=== PATIENT | female | born 1950 | race Asian ===

== ENCOUNTER 2018-09-19 08:24 | Outpatient (CLI) | payer MEDICARE, OTHER ==
--- NOTE | 2018-09-19 10:12 | MMO ---
Bilateral MAMMO Bilat Screen [facility]. CLINICAL HISTORY: Patient is 67 years old and is seen for screening. The patient has no family history of breast cancer. The patient has no personal history of cancer. VIEWS: The views performed were: bilateral craniocaudal and bilateral mediolateral oblique. FILMS COMPARED: The present examination has been compared to prior imaging studies performed at [facility] on 05/29/2010, 08/26/2011, 09/15/2012 and 03/26/2014, and at [facility] on 08/13/2016. This study has been interpreted with the assistance of computer-aided detection. MAMMOGRAM FINDINGS: The breasts are heterogeneously dense, which could obscure a lesion on mammography. There are no suspicious masses, suspicious calcifications, or new areas of architectural distortion. IMPRESSION: THERE IS NO MAMMOGRAPHIC EVIDENCE OF MALIGNANCY. A ROUTINE FOLLOW-UP MAMMOGRAM IN 1 YEAR IS RECOMMENDED. ACR BI-RADS Category 1 - Negative MAMMOGRAPHY NOTE: 1. A negative mammogram report should not delay a biopsy if a dominant of clinically suspicious mass is present. 2. Approximately 10% to 15% of breast cancers are not detected by mammography. 3. Adenosis and dense breasts may obscure an underlying neoplasm.
== END 2018-09-19 08:25 | disposition home or self-care (01) ==
LOC: SCSMAMMO 08:24
PROVIDERS: ATTEND Family Medicine
DX: Z12.31 Encounter for screening mammogram for malignant neoplasm of breast (principal)
CPT/HCPCS: 77067

== ENCOUNTER 2019-10-11 08:00 | Outpatient (CLI) | payer MEDICARE, OTHER ==
--- NOTE | 2019-10-11 10:53 | MRI ---
MRI RIGHT SHOULDER WITHOUT CONTRAST: Date: 10/11/2019 INDICATION: 68-year-old female with history of right shoulder pain. FINDINGS: There is a partial thickness articular surface tear involving the near entirety of the supraspinatus at the footprint measuring 1.5 x 2.1 cm in its greatest mediolateral and AP dimensions, respectively. The tear involves approximately 50% of the supraspinatus tendon thickness. There is some mild partia l thickness articular surface extension into the anterior conjoined tendon. The infraspinatus demonst rates some moderate tendinosis. There is moderate tendinosis of the intraarticular biceps tendon with an intraarticular split tear that does extend into the biceps anchor complex. No discrete superior g lenoid labral tear is evident. There is full thickness area of articular cartilage thinning involving the inferior glenoid articular surface with underlying subchondral cyst-like abnormalities. A small amount of fluid is seen within the subacromial/subdeltoid space. There is mild AC joint osteoarthrosi s. No muscular atrophy is evident. Biceps tendon is located within the bicipital groove. No os acromi vishal is evident. There is a Type II acromion. No lymphadenopathy is noted. IMPRESSION: 1. Partial thickness articular surface tear of the supraspinatus at the footprint with some partial thickness tear extension into the anterior conjoined tendon. 2. Moderate intraarticular biceps tendinosis with intraarticular split tear extending into the bicep s anchor complex without a discrete superior glenoid labral tear. 3. Mild glenohumeral osteoarthrosis with full thickness articular cartilage thinning involving the i nferior glenoid articular surface. 4. Mild AC joint osteoarthrosis. POS: CONCEPCION
== END 2019-10-11 08:01 | disposition home or self-care (01) ==
LOC: SCSMRI 08:00
PROVIDERS: ATTEND Orthopaedic Surgery
DX: M25.511 Pain in right shoulder (principal); M19.011 Primary osteoarthritis, right shoulder; M75.111 Incomplete rotator cuff tear or rupture of right shoulder, not specified as traumatic; M24.111 Other articular cartilage disorders, right shoulder; M67.813 Other specified disorders of tendon, right shoulder; S46.211A Strain of muscle, fascia and tendon of other parts of biceps, right arm, initial encounter